=== PATIENT | male | born 1960 | race African-American/Black ===

== ENCOUNTER 2025-03-15 07:02 | Inpatient (IN) | payer MEDICARE, MEDICAID ==
[2025-03-15] VITALS (11 sets, daily range): BP systolic 119–147; BP diastolic 75–92; PULSE 73–129; RESP 16–38; TEMP 36.2–36.9; O2SAT 91–98
[~2025-03-15] VITALS: Ht 195.6 cm; Wt 109.8 kg
[2025-03-15] MEDS: ALBUTEROL (0.083%) 2.5MG/3ML NEB HHN STA (07:46)
[2025-03-15] MEDS: IPRATROPIUM BROMIDE (0.02%) 0.5MG/2.5ML NEB HHN STA (07:46)
[2025-03-15] MEDS: MAGNESIUM 2 G PREMIX 50 ML IV ONE (08:31)
[2025-03-15] MEDS: METHYLPREDNISOLONE SOD SUCC 125MG/2ML (ACT-O-VIAL) IV STA (08:31)
[2025-03-15 08:57] LABS: HEMATOCRIT. 37.8 % (42.0-52.0); HEMOGLOBIN. 12.4 g/dL (14.0-18.0); MEAN CORPUSCULAR HGB CONC 32.8 g/dL (31.0-37.0); MEAN CORPUSCULAR VOLUME 82.4 fL (80.0-94.0); MEAN PLATELET VOLUME 7.9 fl (7.4-10.4); PLATELET 220 x1000/uL (130-400); RED BLOOD CELL COUNT 4.59 mill/uL (4.7-6.1); RED CELL DISTRIBUTION WIDTH 14.7 % (11.6-14.6); WHITE BLOOD COUNT 12.4 x1000/uL (4.5-11.0)
[2025-03-15 09:00] LABS: DIFFERENTIAL COMMENT 1
[2025-03-15 09:03] LABS: CHLORIDE 100 mEq/L (98-107); POTASSIUM 3.8 mEq/L (3.5-5.1); SODIUM 136 mEq/L (136-145)
[2025-03-15 09:04] LABS: CARBON DIOXIDE 35 mEq/L (21-32)
[2025-03-15 09:05] LABS: CALCIUM 10.1 mg/dL (8.7-10.4)
[2025-03-15 09:09] LABS: CREATININE 0.7 mg/dL (0.6-1.3); GLUCOSE 145 mg/dL (70-105); UREA NITROGEN BLOOD 14 mg/dL (9-23)
[2025-03-15 09:15] LABS: TROPONIN I HIGH SENSITIVITY 216 ng/L (3.0-53)
[2025-03-15] MEDS: ENOXAPARIN 80MG/0.8ML SYR SUBCUT ONE (09:35)
[2025-03-15] MEDS ORDERED: ACETAMINOPHEN 325MG TABLET PO PRN (10:00)
[2025-03-15] MEDS ORDERED: HYDROMORPHONE HCL/PF 2MG/ML INJ IV PRN (10:00)
[2025-03-15] MEDS ORDERED: MAGNESIUM/ALUMINUM HYDROXIDE/SIMETHICONE 30ML UDC PO PRN (10:00)
[2025-03-15] MEDS ORDERED: ONDANSETRON HCL 4MG/2ML INJ IV PRN (10:00)
[2025-03-15] MEDS ORDERED: ACETAMINOPHEN 650MG/20.3ML UDC GT PRN (10:00)
[2025-03-15] MEDS ORDERED: CLONIDINE 0.1MG TABLET PO PRN (10:00)
[2025-03-15] MEDS ORDERED: GUAIFENESIN 200MG/10ML SUGAR FREE UDC PO PRN (10:00)
[2025-03-15] MEDS ORDERED: NALOXONE HCL 0.4MG/ML VIAL IV PRN (10:15)
[2025-03-15] MEDS: ENOXAPARIN 40MG/0.4ML SYR SUBCUT SCH (10:16)
[2025-03-15] MEDS: METHYLPREDNISOLONE SOD SUCC 40MG/ML (ACT-O-VIAL) IV SCH (10:16)
[2025-03-15 10:25] LABS: PLATELET ESTIMATE NORMAL
[2025-03-15] MEDS: AZITHROMYCIN 500MG/250ML 250 ML IV SCH (10:37)
[2025-03-15] MEDS: ALBUTEROL (0.5%) 2.5MG/0.5ML NEB HHN PRN (10:58)
[2025-03-15] MEDS: IPRATROPIUM/ALBUTEROL 0.5-3(2.5)MG/3ML NEB HHN SCH (11:38)
[2025-03-15] MEDS: SODIUM CHLORIDE 0.9% 1,000 ML IV ONE (11:41)
[2025-03-15 12:15] LABS: BG BASE EXCESS 6.4 mmol/L (-2.0-3.0); BG DEOXYHEMOGLOBIN 0.8 % (0.0-5.0); BG FRACTION INSPIRED OXYGEN 100; BG HCO3 ACT 33.2 mmol/L (21.0-28.0); BG METHEMOGLOBIN 0.3 % (0.5-1.5); BG OXYGEN SATURATION 99.2 % (94.0-98.0); BG OXYHEMOGLOBIN 96.9 % (94.0-98.0); BG PH 7.376 (7.350-7.450); BG PO2 141.9 mmHg (83.0-108.0); BG SAMPLE SITE RIGHT RADIAL; BG TOTAL HEMOGLOBIN 13.2 g/dL (13.5-17.5); BG VENT MODE MASK - NRB
[2025-03-15] MEDS ORDERED: LOSA1TAB37 MT (16:00)
[2025-03-15] MEDS ORDERED: METF-414 PO (16:00)
[2025-03-15] MEDS ORDERED: FINA5TAB11 PO (16:01)
[2025-03-15 17:17] LABS: TROPONIN I HIGH SENSITIVITY 242 ng/L (3.0-53)
[2025-03-15 17:47] LABS: CLARITY URINE CLEAR (CLEAR); COLOR URINE YELLOW (YELLOW); GLUCOSE URINE NEGATIVE (NEGATIVE); KETONES URINE NEGATIVE (NEGATIVE); LEUKOCYTE ESTERASE URINE 3+ (NEGATIVE); NITRITE URINE POSITIVE (NEGATIVE); OCCULT BLOOD URINE TRACE (NEGATIVE); PH URINE 6.5 (4.5-8.0); PROTEIN URINE TRACE (NEGATIVE); SPECIFIC GRAVITY URINE 1.013 (1.005-1.030)
[2025-03-15 18:21] LABS: RBC URINE 0-2 /hpf (0-2); SQUAMOUS EPITHELIAL CELL URINE FEW /lpf (RARE/1+)
[2025-03-15 18:22] LABS: BACTERIA URINE 2+
[2025-03-15] MEDS: CEFTRIAXONE 1GM/50ML 50 ML IV SCH (18:49)
[2025-03-15] MEDS: ATORVASTATIN CALCIUM 40MG TABLET PO SCH (21:27)
[2025-03-16] VITALS (16 sets, daily range): BP systolic 129–156; BP diastolic 63–93; PULSE 69–105; RESP 15–22; TEMP 36.2–36.4; O2SAT 90–98
[2025-03-16 01:02] LABS: TROPONIN I HIGH SENSITIVITY 188 ng/L (3.0-53)
[2025-03-16 06:19] LABS: HEMOGLOBIN. 12.4 g/dL (14.0-18.0); MEAN CORPUSCULAR HEMOGLOBIN 26.5 pg (28.0-32.0); MEAN CORPUSCULAR HGB CONC 31.9 g/dL (31.0-37.0); MEAN CORPUSCULAR VOLUME 83.2 fL (80.0-94.0); MEAN PLATELET VOLUME 8.4 fl (7.4-10.4); PLATELET 213 x1000/uL (130-400); RED BLOOD CELL COUNT 4.69 mill/uL (4.7-6.1); RED CELL DISTRIBUTION WIDTH 15.6 % (11.6-14.6); WHITE BLOOD COUNT 18.7 x1000/uL (4.5-11.0)
[2025-03-16 06:27] LABS: CARBON DIOXIDE 35 mEq/L (21-32); CHLORIDE 102 mEq/L (98-107); POTASSIUM 4.3 mEq/L (3.5-5.1); SODIUM 140 mEq/L (136-145)
[2025-03-16 06:28] LABS: CALCIUM 10.2 mg/dL (8.7-10.4)
[2025-03-16 06:32] LABS: DIFFERENTIAL COMMENT 1
[2025-03-16 06:33] LABS: CREATININE 0.6 mg/dL (0.6-1.3); GLUCOSE 142 mg/dL (70-105); UREA NITROGEN BLOOD 16 mg/dL (9-23)
[2025-03-16] MEDS: AMLODIPINE 5MG TABLET PO SCH (08:22)
[2025-03-16] MEDS: ASPIRIN 81MG TABLET PO SCH (10:50)
[2025-03-16] MEDS: AZITHROMYCIN 500MG/250ML 250 ML IV SCH (10:50)
[2025-03-16 14:34] LABS: *AMPHETAMINES SCREEN URINE NEGATIVE (NEGATIVE); *BARBITURATES SCREEN URINE NEGATIVE (NEGATIVE); *BENZODIAZEPINES SCREEN URINE NEGATIVE (NEGATIVE); *COCAINE SCREEN URINE NEGATIVE (NEGATIVE); CANNABINOID URINE SCREEN NEGATIVE (NEGATIVE); ECSTASY MDMA SCREEN URINE NEGATIVE (NEGATIVE); METHADONE URINE SCREEN NEGATIVE (NEGATIVE); OPIATES URINE SCREEN NEGATIVE (NEGATIVE); PHENCYCLIDINE URINE SCREEN NEGATIVE (NEGATIVE)
[2025-03-16 18:19] LABS: PLATELET ESTIMATE NORMAL
[2025-03-17] VITALS (20 sets, daily range): BP systolic 118–158; BP diastolic 58–98; PULSE 71–93; RESP 15–21; TEMP 36.3–36.6; O2SAT 89–99
[2025-03-17] MEDS: LOSARTAN 25 MG TABLET PO SCH (15:00)
[2025-03-17 17:02] LABS: HEMATOCRIT. 38.2 % (42.0-52.0); HEMOGLOBIN. 12.1 g/dL (14.0-18.0); MEAN CORPUSCULAR HEMOGLOBIN 26.6 pg (28.0-32.0); MEAN CORPUSCULAR HGB CONC 31.6 g/dL (31.0-37.0); MEAN CORPUSCULAR VOLUME 84.2 fL (80.0-94.0); MEAN PLATELET VOLUME 8.4 fl (7.4-10.4); PLATELET 220 x1000/uL (130-400); RED BLOOD CELL COUNT 4.54 mill/uL (4.7-6.1); RED CELL DISTRIBUTION WIDTH 15.5 % (11.6-14.6); WHITE BLOOD COUNT 16.8 x1000/uL (4.5-11.0)
[2025-03-17 17:03] LABS: DIFFERENTIAL COMMENT 1
[2025-03-17 17:32] LABS: PLATELET ESTIMATE NORMAL
[2025-03-17 21:32] LABS: CHLORIDE 100 mEq/L (98-107); SODIUM 139 mEq/L (136-145)
[2025-03-17 21:33] LABS: CARBON DIOXIDE 34 mEq/L (21-32)
[2025-03-17 21:34] LABS: CALCIUM 9.8 mg/dL (8.7-10.4)
[2025-03-17 21:38] LABS: CREATININE 0.6 mg/dL (0.6-1.3); GLUCOSE 185 mg/dL (70-105)
[2025-03-17 21:39] LABS: UREA NITROGEN BLOOD 19 mg/dL (9-23)
[2025-03-18] VITALS (17 sets, daily range): BP systolic 104–138; BP diastolic 43–97; PULSE 69–84; RESP 11–25; TEMP 36.3–36.8; O2SAT 89–99
[2025-03-19] VITALS (18 sets, daily range): BP systolic 109–149; BP diastolic 51–84; PULSE 68–89; RESP 13–26; TEMP 36.6–37.1; O2SAT 86–100
[2025-03-19] MEDS ORDERED: P20 MT (11:33)
[2025-03-19] MEDS ORDERED: ASPI-1160 PO (11:33)
[2025-03-19] MEDS ORDERED: LIP40 PO (11:33)
[2025-03-19 12:45] LABS: BG BASE EXCESS 8.4 mmol/L (-2.0-3.0); BG DEOXYHEMOGLOBIN 11.1 % (0.0-5.0); BG FRACTION INSPIRED OXYGEN 21; BG HCO3 ACT 33.8 mmol/L (21.0-28.0); BG METHEMOGLOBIN 0.3 % (0.5-1.5); BG OXYGEN SATURATION 88.8 % (94.0-98.0); BG OXYHEMOGLOBIN 87.6 % (94.0-98.0); BG PCO2 49.7 mmHg (35.0-48.0); BG PH 7.451 (7.350-7.450); BG PO2 55.9 mmHg (83.0-108.0); BG SAMPLE SITE LEFT RADIAL; BG TOTAL HEMOGLOBIN 13.9 g/dL (13.5-17.5); BG VENT MODE ROOM AIR
[2025-03-20] VITALS (10 sets, daily range): BP systolic 101–148; BP diastolic 57–113; PULSE 74–91; RESP 16–24; TEMP 36.6–37.1; O2SAT 91–98
== END 2025-03-20 11:56 | disposition home or self-care (01) | DRG 189 ==
LOC: ER 07:02 → 5EST 09:30 → EDBEDREQ 09:32 → EDBEDREQTM 09:32 → EDBEDREQSVC 11:17
PROVIDERS: ADMIT Internal Medicine; ATTEND Internal Medicine
PROC: 5A09357 Assistance with Respiratory Ventilation, Less than 24 Consecutive Hours, Continuous Positive Airway Pressure (ICD-10-PCS; principal; 2025-03-15)
PROC: 5A09357 Assistance with Respiratory Ventilation, Less than 24 Consecutive Hours, Continuous Positive Airway Pressure (ICD-10-PCS; 2025-03-16)
PROC: 5A09357 Assistance with Respiratory Ventilation, Less than 24 Consecutive Hours, Continuous Positive Airway Pressure (ICD-10-PCS; 2025-03-17)
PROC: 5A09357 Assistance with Respiratory Ventilation, Less than 24 Consecutive Hours, Continuous Positive Airway Pressure (ICD-10-PCS; 2025-03-18)
DX: J96.01 Acute respiratory failure with hypoxia (principal); J44.1 Chronic obstructive pulmonary disease with (acute) exacerbation; J45.901 Unspecified asthma with (acute) exacerbation; N39.0 Urinary tract infection, site not specified; I10 Essential (primary) hypertension; F17.200 Nicotine dependence, unspecified, uncomplicated; B96.20 Unspecified Escherichia coli [E. coli] as the cause of diseases classified elsewhere; E11.9 Type 2 diabetes mellitus without complications; R79.89 Other specified abnormal findings of blood chemistry; E78.5 Hyperlipidemia, unspecified; Z79.84 Long term (current) use of oral hypoglycemic drugs; Z79.899 Other long term (current) drug therapy
CPT/HCPCS: 36415; 36600; 71045; 71250; 80048; 80305; 81003; 82375; 82805; 83880; 84484; 85025; 85379; 87077; 87186; 93005; 93306; 93970; 94070; 94640; 94660; 94664; 99291; A4606; J0456; J0696; J1650; J2919; J3475; J7030